=== PATIENT | female | born 1990 | race African-American/Black ===

== ENCOUNTER 2020-01-26 18:04 | Emergency (ER) | payer OTHER ==
[~2020-01-26] VITALS: Ht 172.7 cm; Wt 135.0 kg
--- NOTE | 2020-01-26 18:34 | PHYS DOC ---
Adult General Chief Complaint Chief Complaint: CPR/FULL ARREST HPI HPI Patient is a 29 year old female with a past medical history of Asthma, Hypertension, History of Pre-eclampsia with 2 previous who is G3,P2 approximately 17 weeks presents via EMS in cardiac arrest. Patient was being transferred from [facility] ICU to [facility] ICU--- while enroute patient went into cardiac arrest. EMS diverted to [facility]. On arrival patient was in PEA with CPR per ACLS protocal. Patient previously intubated and being bagged on arrival. On arrival patient had propofol and fentanyl drips running-- stopped during code. Catapress patch left arm-- removed during code. During code-- Patient received a Epinephrine 1 mg x 3 D50 1 Narcan 0.4 mg 1 Magnesium 1 g 1 Bicarbonate 1 amp 1 Patient had return of spontaneous circulation. She was placed on an epi drip. Review of Systems Review of Systems ROS was not obtained diagnoses due to medical condition Current Medications Current Medications Current Medications Medications (Trade) Dose Ordered Sig/Vijaya Start Time Stop Time Status Last Admin Dose Admin Furosemide (Lasix) 40 mg 1X ONCE 01/26/20 18:45 01/26/20 18:46 DC 01/26/20 18:45 40 MG Sodium Bicarbonate 50 meq/Sodium Chloride 1,050 ml @ 125 mls/hr 1X ONCE 01/26/20 19:00 01/27/20 03:23 01/26/20 19:09 125 MLS/HR Allergies Allergies Allergies Coded Allergies Type Severity Reaction Last Updated Verified No Known Drug Allergies 01/26/20 No Physical Exam Physical Exam General: Unresponsive intubated Skin: dry and intact. Head:: Normocephalic, atraumatic. Neck; Supple. Trachea midline. Eyes: Pupils dilated CARDIOVASCULAR: Pulses with chest compressions RESPIRATORY: An intubated decreased breath sounds bilateral MUSCULOSKELETAL: No deformities noted of bilateral upper and lower extremities. GASTROINTESTINAL: ABD soft NEUROLOGICAL: Unresponsive Current Patient Data Vital Signs Vital Signs Date Time Temp Pulse Resp B/P (MAP) Pulse Ox O2 Delivery O2 Flow Rate FiO2 01/26/20 18:30 89 Ventilator Lab Values Laboratory Tests Test 01/26/20 18:20 01/26/20 18:42 01/26/20 19:00 Sodium Level 133 mmol/L (136-145) L Potassium Level 5.2 mmol/L (3.5-5.1) H Chloride Level 101 mmol/L (98-107) Carbon Dioxide Level 17 mmol/L (21-32) L Anion Gap 15 (6-14) H Blood Urea Nitrogen 39 mg/dL (7-20) H Creatinine 1.7 mg/dL (0.6-1.0) H Estimated GFR (Cockcroft-Gault) 43.6 BUN/Creatinine Ratio 23 (6-20) H Glucose Level 280 mg/dL (70-99) H Calcium Level 8.3 mg/dL (8.5-10.1) L Magnesium Level 2.5 mg/dL (1.8-2.4) H Total Bilirubin 0.5 mg/dL (0.2-1.0) Aspartate Amino Transferase (AST) 125 U/L (15-37) H Alanine Aminotransferase (ALT) 83 U/L (14-59) H Alkaline Phosphatase 58 U/L (46-116) Troponin I Quantitative 0.070 ng/mL (0.000-0.055) NS-Otj-J-Type Natriuretic Peptide 1163 pg/mL (0-124) H Total Protein 6.4 g/dL (6.4-8.2) Albumin 2.2 g/dL (3.4-5.0) L Albumin/Globulin Ratio 0.5 (1.0-1.7) L O2 Saturation 88 % (92-99) L Arterial Blood pH 7.05 (7.35-7.45) *L Arterial Blood pCO2 at Patient Temp 59 mmHg (35-46) H Arterial Blood pO2 at Patient Temp 77 mmHg (85-108) L Arterial Blood HCO3 16 mmol/L (21-28) L Arterial Blood Base Excess -14 mmol/L (-3-3) L FiO2 100 White Blood Count 19.7 x10^3/uL (4.0-11.0) H Red Blood Count 3.45 x10^6/uL (3.50-5.40) L Hemoglobin 9.4 g/dL (12.0-15.5) L Hematocrit 29.3 % (36.0-47.0) L Mean Corpuscular Volume 85 fL (79-100) Mean Corpuscular Hemoglobin 27 pg (25-35) Mean Corpuscular Hemoglobin Concent 32 g/dL (31-37) Red Cell Distribution Width 16.4 % (11.5-14.5) H Platelet Count 224 x10^3/uL (140-400) Neutrophils (%) (Auto) 88 % (31-73) H Lymphocytes (%) (Auto) 8 % (24-48) L Monocytes (%) (Auto) 4 % (0-9) Eosinophils (%) (Auto) 0 % (0-3) Basophils (%) (Auto) 0 % (0-3) Neutrophils # (Auto) 17.3 x10^3/uL (1.8-7.7) H Lymphocytes # (Auto) 1.5 x10^3/uL (1.0-4.8) Monocytes # (Auto) 0.8 x10^3/uL (0.0-1.1) Eosinophils # (Auto) 0.0 x10^3/uL (0.0-0.7) Basophils # (Auto) 0.0 x10^3/uL (0.0-0.2) Platelet Estimate Pending Laboratory Tests 01/26/20 19:00 Laboratory Tests 01/26/20 18:20 EKG EKG 1829HRS Rate 99 Sinus Rhythm No STEMI[] Radiology/Procedures Radiology/Procedures 1. Endotracheal tube tip 2.2 cm from the lorena. Enteric tube tip and sidehole are below the diaphragm. 2. Enlargement of the cardiomediastinal silhouette and left hilar structures. The right hilar region is obscured by extensive heterogeneous opacification of the right lung. Less extensive opacities involving the left lung. The appearance is nonspecific but could represent a manifestation of cardiac arrest such as from alveolar edema/ARDS. Attention on follow-up to confirm improvement. Course & Med Decision Making Course & Med Decision Making Pertinent Labs and Imaging studies reviewed. (See chart for details) []Patient arrived via EMS with CPR in progress. Patient coded per ACLS protocol. Patient had return of spontaneous circulation. Patient was started on an epi drip. Vital signs at this time appear to be stable. I believe patient is stable for discharge. Patient condition is critical. No family available to discuss patient's condition. Discussed patient with [facility] Dr. Kerry Swift-- who accepted patient. At time I feel that the patient has stabilized and would greatly benefit to continue transfer to [facility]. Dragon Disclaimer Dragon Disclaimer This electronic medical record was generated, in whole or in part, using a voice recognition dictation system. Departure Departure Impression: Primary Impression: Cardiac arrest Additional Impressions: Pre-eclampsia Hypertension Respiratory acidosis Disposition: 05 TRANSFER OTHER (Transfer to [facility]) Condition: CRITICAL Problem Qualifiers Additional Impressions: Pre-eclampsia Trimester: unspecified trimester Qualified Codes: O14.90 - Unspecified pre-eclampsia, unspecified trimester Weeks of gestation: 17 weeks Qualified Codes: Z3A.17 - 17 weeks gestation of Hypertension Hypertension type: unspecified Qualified Codes: I10 - Essential (primary) hypertension JACE TAYLOR DO Jan 26, 2020 18:34
[2020-01-26 18:44] LABS: BASE EXCESS ABG -14 mmol/L (-3-3); HCO3 ABG 16 mmol/L (21-28); PCO2 ABG 59 mmHg (35-46); PO2 ABG 77 mmHg (85-108); SAT O2 ABG 88 % (92-99)
[2020-01-26] MEDS ORDERED: FUROSEMIDE 40 MG/4 ML VIAL. IVP ONE (18:45)
[2020-01-26 18:46] LABS: CALCIUM 8.3 mg/dL (8.5-10.1); CREATININE 1.7 mg/dL (0.6-1.0); POTASSIUM 5.2 mmol/L (3.5-5.1)
[2020-01-26 18:47] LABS: FIO2 ABG 100
[2020-01-26 18:51] LABS: ALBUMIN 2.2 g/dL (3.4-5.0); ALBUMIN/GLOBULIN RATIO 0.5 (1.0-1.7); MAGNESIUM 2.5 mg/dL (1.8-2.4); TOTAL BILIRUBIN 0.5 mg/dL (0.2-1.0); TOTAL PROTEIN 6.4 g/dL (6.4-8.2)
[2020-01-26 18:53] LABS: GFR 43.6
[2020-01-26] MEDS ORDERED: SODIUM BICARBONATE VIAL 50 MEQ in IV 1/2 NORMAL SALINE 1,000 ML IV ONE (19:00)
--- NOTE | 2020-01-26 19:06 | RAD ---
Study: CHEST AP ONLY Indication: Cardiac arrest. Comparison: None. Findings: Endotracheal tube tip terminates 2.2 cm from the lorena. Enteric tube sidehole is below the diaphragm. The tip is beyond the inferior margin of the [id number]. The cardiomediastinal silhouette is prominent in size. The ganesh aren't secured on the right. Prominence of the hilar region on the left. Extensive heterogeneous opacification of the right lung with faint subpleural and apical sparing. Less pronounced hazy opacification involving the left lung noting obscuration by the enlarged cardiomediastinal silhouette. The most localized opacification is at the upper third of the left lung. No pneumothorax. Obscuration of the costophrenic angle on the left. The costophrenic angle on the right remains delineated. Impression: 1. Endotracheal tube tip 2.2 cm from the lorena. Enteric tube tip and sidehole are below the diaphragm. 2. Enlargement of the cardiomediastinal silhouette and left hilar structures. The right hilar region is obscured by extensive heterogeneous opacification of the right lung. Less extensive opacities involving the left lung. The appearance is nonspecific but could represent a manifestation of cardiac arrest such as from alveolar edema/ARDS. Attention on follow-up to confirm improvement. Electronically signed by: SANDI VENEGAS MD (01/26/2020 7:03 PM) [id number]
[2020-01-26 19:13] LABS: BASO % 0 % (0-3); EOS % 0 % (0-3); HEMATOCRIT 29.3 % (36.0-47.0); HEMOGLOBIN 9.4 g/dL (12.0-15.5); LYMPH # 1.5 x10^3/uL (1.0-4.8); LYMPH % 8 % (24-48); MEAN CORPUSCULAR HEMOGLOBIN 27 pg (25-35); MEAN CORPUSCULAR HGB CONC 32 g/dL (31-37); MEAN CORPUSCULAR VOLUME 85 fL (79-100); MONO # 0.8 x10^3/uL (0.0-1.1); MONO % 4 % (0-9); NEUT # 17.3 x10^3/uL (1.8-7.7); NEUT % 88 % (31-73); PLATELET COUNT 224 x10^3/uL (140-400); RED BLOOD COUNT 3.45 x10^6/uL (3.50-5.40); RED CELL DISTRIBUTION WIDTH 16.4 % (11.5-14.5); WHITE BLOOD COUNT 19.7 x10^3/uL (4.0-11.0)
[2020-01-26 19:27] VITALS: BP 145/55
[2020-01-26 19:46] LABS: % BANDS 19 % (0-9); % LYMPHS 3 % (24-48); % MONOS 4 % (0-10); % SEGS 74 % (35-66)
[2020-01-26 19:47] LABS: PLT ESTIMATE ADEQUATE (ADEQUATE)
[2020-01-26 19:48] LABS: POLYCHROMASIA SLIGHT; TOXIC GRANULATION MOD; TOXIC VACUOLATION SLIGHT
[2020-01-26] MEDS ORDERED: NALOXONE 0.4 MG/ML VIAL. IV ONE (21:30)
[2020-01-26] MEDS ORDERED: IV NORMAL SALINE 1000ML BAG 1,000 ML IV ONE (21:30)
[2020-01-26] MEDS ORDERED: DEXTROSE 50% 25 GM / 50ML DISP.SYRIN. IV ONE (21:30)
[2020-01-26] MEDS ORDERED: EPINEPHrine VIAL 5 MG in IV NORMAL SALINE 250ML 250 ML IV PRN (21:30)
[2020-01-26] MEDS ORDERED: EPINEPHrine SYRINGE 1 MG/10 ML SYRINGE IV ONE ×3 (21:30)
[2020-01-26] MEDS ORDERED: MAGNESIUM SULFATE 1GM 100 ML IV ONE (21:30)
--- NOTE | 2020-01-27 05:22 | EKG ---
[facility] [address] [place] [address] Test Date: 2020-01-26 Test Time: 18:29:36 Pat Name: MIROSLAVA MARTINEZ Department: Room: Gender: F Director Print: : 1990 Requested By: JACE TAYLOR Order Number: [id number] Reading MD: Measurements Intervals [place] Rate: 99 P: 36 WA: 150 QRS: 41 QRSD: 84 T: 17 QT: 372 QTc: 483 Interpretive Statements SINUS RHYTHM PROLONGED QT NO SPECIFIC ECG ABNORMALITIES RI6.01 No previous ECG available for comparison
== END 2020-01-26 19:35 | disposition short-term general hospital (02) ==
LOC: ER 18:04
DX: O99.412 Diseases of the circulatory system complicating pregnancy, second trimester (principal); I46.9 Cardiac arrest, cause unspecified; O14.92 Unspecified pre-eclampsia, second trimester; O16.2 Unspecified maternal hypertension, second trimester; O99.512 Diseases of the respiratory system complicating pregnancy, second trimester; E87.2 Acidosis; J45.909 Unspecified asthma, uncomplicated; Z3A.17 17 weeks gestation of pregnancy
CPT/HCPCS: 31500; 36415; 71045; 80053; 82805; 83735; 83880; 84484; 85007; 85025; 92950; 93005; 99285; J0171; J1940; J2310; J3475; J3490; J7030; J7042; J7050